=== PATIENT | male | born 1980 | race Caucasian/White ===

== ENCOUNTER 2017-07-22 09:25 | Outpatient (CLI) | payer BC | END 2017-07-22 09:26 | disposition home or self-care (01) | LOC: CTENTCT 09:25 | PROVIDERS: ATTEND Otolaryngology Plastic Surgery within the Head & Neck | DX: J32.9 Chronic sinusitis, unspecified (principal) | CPT/HCPCS: 70486 ==

== ENCOUNTER 2019-03-15 07:14 | Outpatient (CLI) | payer BC ==
--- NOTE | 2019-03-15 09:25 | ULT ---
HEPATIC ULTRASOUND INCLUDING COLOR AND SPECTRAL DOPPLER IMAGING: Date: 03/15/19 HISTORY: Elevated LFTs. FINDINGS: Hepatomegaly with liver measuring up to 19.0 cm. Very coarse heterogeneous echogenicity throughout, e vidence for fatty change. No evidence of gallstones. Common bile duct 0.3 cm. Visualized pancreas and spleen are unremarkable. Vascular flow, including hepatic and portal venous flow is antegrade. IMPRESSION: 1. Enlarged, fatty liver. 2. No gallstones seen. 3. No common duct dilatation. 4. Antegrade hepatic and portal venous flow. POS: [facility]
[2019-03-15 11:36] LABS: Iron 84 ug/dL (65-175); Iron Binding Capacity, Total 278 mcg/dL (261-462)
[2019-03-15 12:07] LABS: Ferritin 239.57 ng/mL (22-322)
[2019-03-15 12:21] LABS: HBCM Index 0.06 S/CO (0-0.79); HBSAB Concentration 1.74 mIU/mL; HBSAg Index 0.16 S/CO (0-0.99); Hep A IgM AB Non-Reactive (NonReactive); Hep A IgM S/CO 0.12 S/CO (0-0.79); Hep B Core Total Ab Non-Reactive (NonReactive); Hep B Core Total Index 0.06 S/CO (0-0.79); Hep B Surf AB Non-Reactive (NonReactive); Hep B Surf Ag Non-Reactive S/CO (NonReactive); Hep C IgG Ab Non-Reactive (NonReactive); Hepatitis B Core IgM Abs Non-Reactive (NonReactive)
[2019-03-15 17:35] LABS: ANA Symphony (Qualitative) Negative (Negative); ANA Symphony (Quantitative) 0.3 Ratio (< 0.7 Negative); EliA Vaculitis New Method **** NEW METHOD ****; Mitochondrial Ab 1.2 U/mL (<4 Negative); dsDNA IgG Antibody 0.9 IU/mL (<10 Negative)
[2019-03-17 14:10] LABS: Alpha-1-Antitrypsin 132 mg/dL (90-200)
== END 2019-03-15 07:15 | disposition home or self-care (01) ==
LOC: SCSULT 07:14
PROVIDERS: ATTEND Internal Medicine Gastroenterology
DX: R94.5 Abnormal results of liver function studies (principal); R11.0 Nausea; K76.0 Fatty (change of) liver, not elsewhere classified
CPT/HCPCS: 36415; 76705; 80074; 82103; 82104; 82390; 82728; 83516; 83540; 83550; 86038; 86225; 86704; 86706; 86803; 87340

== ENCOUNTER 2025-05-29 15:23 | Outpatient (CLI) | payer BC | END 2025-05-29 15:24 | disposition home or self-care (01) | LOC: SCSULT 15:23 | PROVIDERS: ATTEND Family Medicine | DX: N50.82 Scrotal pain (principal); R10.31 Right lower quadrant pain | CPT/HCPCS: 76870; 93976 ==